=== PATIENT | female | born 1960 | race Caucasian/White ===

== ENCOUNTER → 2016-05-26 | Outpatient (CLI) | payer BC ==
[~2016-05-26] MED LIST: AMBIEN CR 12.12.5 MG PO; ANTIVERT 25MG25 MG PO; ELAVIL100 MG PO; ESTRACE 1MG1 MG/TAB PO; LIPITOR 40MG TA40 MG PO; NEURONTIN300 MG/CAP PO
== END ==
LOC: MC.RAD 10:19
DX: Z12.31 Encounter for screening mammogram for malignant neoplasm of breast (principal)

== ENCOUNTER 2016-08-11 14:00 | Emergency (ER) | payer BC ==
[~2016-08-11] VITALS: Ht 160 cm; Wt 59.1 kg
[2016-08-11 14:03] VITALS: TEMP 97.5
[2016-08-11] MEDS ORDERED: LIPITOR 40MG TA40 MG PO (14:06)
[2016-08-11] MEDS ORDERED: NEURONTIN300 MG/CAP PO (14:07)
[2016-08-11] MEDS ORDERED: AMBIEN CR 12.12.5 MG PO (14:07)
[2016-08-11] MEDS ORDERED: ELAVIL100 MG PO (14:07)
[2016-08-11] MEDS ORDERED: ESTRACE 1MG1 MG/TAB PO (14:07)
[2016-08-11 14:27] LABS: BASO # 0.1 (0.0-0.2); BASO % 0.9 % (0.0-2.0); EOS # 0.4 (0.0-0.7); GRAN # 4.6 (1.4-6.5); GRAN % 58.6 % (42.2-75.2); HEMATOCRIT 41.5 % (37.0-47.0); HEMOGLOBIN 14.2 g/dl (12.5-16.0); LYMPH # 2.1 (1.2-3.4); LYMPH % 26.7 % (20.0-51.0); MEAN CELL VOLUME 90 fl (80.0-100.0); MEAN CORPUSCULAR HEMOGLOBIN 31 pg (27.0-31.0); MEAN CORPUSCULAR HGB CONC 34 g/dl (33.0-37.0); MEAN PLATELET VOLUME 10.2 fl (7.4-10.4); MONO # 0.7 (0.1-0.6); MONO % 8.5 % (1.7-9.3); PLATELET COUNT 286 K/mm3 (130-400); WHITE BLOOD COUNT 7.8 K/mm3 (4.8-10.8)
[2016-08-11 14:38] LABS: ADJUSTED CALCIUM 8.9 mg/dL (8.4-10.2); ALANINE AMINOTRANSFERASE 27 U/L (9-52); ALBUMIN 4.5 gm/dL (3.5-5.0); ALKALINE PHOSPHATASE 82 U/L (50-136); ANION GAP 14 mmol/L (7-16); BILIRUBIN,TOTAL 0.5 mg/dL (0.0-1.0); BLOOD UREA NITROGEN 8 mg/dL (7-17); CALCIUM 9.3 mg/dL (8.4-10.2); CARBON DIOXIDE 23 mmol/L (22-30); CHLORIDE 100 mmol/L (98-107); CREATINE KINASE 97 U/L (30-135); CREATININE, serum 0.78 mg/dL (0.52-1.25); GLUCOSE 110 mg/dL (74-106); LIPASE 130 U/L (23-300); POTASSIUM 3.1 mmol/L (3.4-5.0); SODIUM 137 mmol/L (137-145); TOTAL PROTEIN 7.6 gm/dL (6.4-8.2)
[2016-08-11 15:07] LABS: PH 8 (5-8); SQUAMOUS EPITHELIAL 0-2 /hpf; URINE APPEARANCE Hazy; URINE BACTERIA None Seen /hpf; URINE BILIRUBIN Negative (NEGATIVE); URINE BLOOD Negative (NEGATIVE); URINE COLOR Yellow; URINE GLUCOSE Negative (NEGATIVE); URINE KETONE Negative (NEGATIVE); URINE RBC 0-2 /hpf; URINE UROBILINOGEN Negative (NEGATIVE); URINE WBC 0-2 /hpf
[2016-08-11 15:29] LABS: TROPONIN-I < 0.012 ng/mL (0.000-0.034)
[2016-08-11] MEDS ORDERED: ANTIVERT 25MG25 MG PO (17:04)
[2016-08-11 17:15] VITALS: BP 111/76; PULSE 80
== END 2016-08-11 17:40 | disposition home or self-care (01) ==
LOC: COL.ER 14:00
PROVIDERS: Family Medicine
DX: R42 Dizziness and giddiness (principal)
CPT/HCPCS: J2405; J2550; J7030

== ENCOUNTER → 2017-08-16 | Outpatient (CLI) | payer BC | LOC: MC.RAD 10:17 | DX: Z12.31 Encounter for screening mammogram for malignant neoplasm of breast (principal) ==

== ENCOUNTER → 2018-06-03 | Outpatient (CLI) | payer BC | LOC: COL.RAD 05-09 12:45 | DX: R10.2 Pelvic and perineal pain (principal); Z90.710 Acquired absence of both cervix and uterus ==

== ENCOUNTER → 2018-08-24 | Outpatient (CLI) | payer BC | LOC: MC.RAD 08:45 | DX: Z12.31 Encounter for screening mammogram for malignant neoplasm of breast (principal) ==

== ENCOUNTER → 2020-02-19 | Outpatient (CLI) | payer OTHER | LOC: MC.RAD 01-26 13:00 | DX: Z12.31 Encounter for screening mammogram for malignant neoplasm of breast (principal); N63.11 Unspecified lump in the right breast, upper outer quadrant ==

== ENCOUNTER → 2020-02-21 | Outpatient (CLI) | payer OTHER | LOC: MC.RAD 13:00 | DX: N60.01 Solitary cyst of right breast (principal) ==

== ENCOUNTER → 2021-05-05 | Outpatient (CLI) | payer OTHER | LOC: MC.RAD 10:20 | DX: Z12.31 Encounter for screening mammogram for malignant neoplasm of breast (principal) ==

== ENCOUNTER → 2023-09-17 | Outpatient (CLI) | payer OTHER ==
[~2023-09-17] MED LIST changes: +ELAVIL150 MG PO; +ESTRADIOL; +PROTONIX 40MG T40 MG PO; +ROXICODONE 55 MG/TAB PO
== END ==
LOC: MC.RAD 09:17
DX: Z12.31 Encounter for screening mammogram for malignant neoplasm of breast (principal)